=== PATIENT | male | born 1935 | race Caucasian/White ===

== ENCOUNTER → 2017-04-14 | Day surgery (SDC) | payer MEDICARE, OTHER ==
[~2017-04-14] VITALS: Ht 177.8 cm; Wt 68.2 kg
[~2017-04-14] MED LIST: FLOMAX0.4 MG PO; OCUVITE EYE +1 EACH PO; ONE DAILY FOR1 EAC1 PO; STOOL SOFTENER100 MG PO; TYLENOL EXTRA500 MG PO; TYLENOL WITH C1 EACH PO
--- NOTE | ~2017-04-14 | OR ---
PATIENT'S NAME: ALEKSANDR MARROQUIN [facility] AGE: 82 Y [address] ROOM: [place] [id number] LOCATION: [facility] [place] ADMIT DATE: 04/14/2017 OR/Procedure Report DISCHARGE DATE: FAMILY PHYSICIAN: Vasiliy Shearer PA-C ATTENDING PHYSICIAN: Layla Cheema SURGEON: Layla Cheema MD INCOMING FREIGHT CLERK: DATE OF PROCEDURE: 04/14/2017 PREOPERATIVE DIAGNOSES: 1. Left ureter stone. 2. Left upper pole stone. PROCEDURES PERFORMED: Cystoscopy, left ureteroscopy, laser lithotripsy and stent placement. ANESTHESIA: General. COMPLICATIONS: None. INDICATION FOR PROCEDURE: The patient is an 82-year-old male complaining of left flank pain. Abdominopelvic CT scan revealed a 6 mm mid left ureter stone and also a 3 to 4 mm left renal pelvic stone without obstruction. DETAILS OF PROCEDURE: After informed consent obtained, the patient was taken to the operating room. A general anesthetic was applied. He was placed in the dorsal lithotomy position. The groin area was prepped and draped in normal sterile fashion. Cystoscope was introduced into the urethra and bladder without difficulty. A guidewire was placed up into the renal pelvis and a second wire was placed up in the renal pelvis. Ureteroscope was then introduced over one of the wires and driven up to the level of the stone. The wire was removed and a holmium laser fiber was introduced. This was used to fragment the stone into multiple smaller pieces. The stone did migrate further up the ureter and I broke into multiple pieces before it was out of reach. Following this, the ureteroscope was removed. The cystoscope was back- loaded over the guidewire and a 6-Fijian multi-length ureteral stent was passed over the guidewire up into the renal pelvis. Radiograph imaging showed good position of the stent. The bladder was empty and the procedure terminated. The patient tolerated the procedure well and transferred to recovery room in good condition. LAYLA CHEEMA MD PATIENT'S NAME: ALEKSANDR MARROQUIN [facility] AGE: 82 Y [address] ROOM: [place] [id number] LOCATION: [facility] [place] ADMIT DATE: 04/14/2017 OR/Procedure Report DISCHARGE DATE: FAMILY PHYSICIAN: Vasiliy Shearer PA-C ATTENDING PHYSICIAN: Layla Cheema/dov /[id number] d: 04/14/17 2349 t: 04/18/17 0903, OPERATIVE SUMMARY
== END ==
LOC: GPOC 04-13 16:00 → GSDC 12:41 → GPOC 13:00
PROC: 0TF78ZZ Fragmentation in Left Ureter, Via Natural or Artificial Opening Endoscopic (ICD-10-PCS; principal; 2017-04-14)
PROC: 0T778DZ Dilation of Left Ureter with Intraluminal Device, Via Natural or Artificial Opening Endoscopic (ICD-10-PCS; 2017-04-14)
DX: N20.2 Calculus of kidney with calculus of ureter (principal); M19.90 Unspecified osteoarthritis, unspecified site; K21.9 Gastro-esophageal reflux disease without esophagitis; N40.0 Benign prostatic hyperplasia without lower urinary tract symptoms; Z98.890 Other specified postprocedural states; Z90.49 Acquired absence of other specified parts of digestive tract; Z88.0 Allergy status to penicillin
CPT/HCPCS: C1769; J1956; J2001; J7120

== ENCOUNTER → 2017-05-02 | Day surgery (SDC) | payer MEDICARE, OTHER ==
[~2017-05-02] VITALS: Ht 177.8 cm; Wt 70.2 kg
--- NOTE | ~2017-05-02 | OR ---
PATIENT'S NAME: ALEKSANDR MARROQUIN [facility] [place] AGE: 82 Y [address] ROOM: [place] [address] [place] [facility] [place]: 05/02/2017 OR/Procedure Report DISCHARGE DATE: FAMILY PHYSICIAN: Vasiliy Shearer PA-C ATTENDING PHYSICIAN: Layla Cheema SURGEON: Layla Cheema MD COOK'S ASSISTANT: DATE OF PROCEDURE: 05/02/2017 PREOPERATIVE DIAGNOSIS: Left nephrolithiasis. POSTOPERATIVE DIAGNOSIS: Left nephrolithiasis. PROCEDURE PERFORMED: 1. Left ESWL. 2. Cystoscopy with stent removal. ANESTHESIA: General. COMPLICATIONS: None. INDICATION FOR PROCEDURE: The patient is an 82-year-old male with left nephrolithiasis and left ureter stone. The patient is status post ureteroscopy with laser lithotripsy and stent placement. The patient presents for further treatment. DETAILS OF PROCEDURE: After informed consent obtained, the patient was taken to the operating room. A general anesthetic was applied. He was placed in the supine position on the lithotripsy table. His stone migrated down into the mid ureter adjacent to the stent. This was located with fluoroscopy. He received shocks starting at 16 kilovolts and gradually increased to 26 kilovolts. The patient has received a total of 1500 shocks with excellent fragmentation of the stone. The groin area was then prepped and draped in normal sterile fashion. Flexible cystoscope was introduced into the urethra and bladder without difficulty. The stent was identified, engaged with forceps and removed. The patient tolerated the procedure well and transferred to recovery room in good condition. LAYLA CHEEMA MD PATIENT'S NAME: ALEKSANDR MARROQUIN [facility] [place] AGE: 82 Y [address] ROOM: [place] [address] [place] [facility] [place]: 05/02/2017 OR/Procedure Report DISCHARGE DATE: FAMILY PHYSICIAN: Vasiliy Shearer PA-C ATTENDING PHYSICIAN: Layla Cheema/modl /[id number] d: 05/02/17 1808 t: 05/10/17 1158, OPERATIVE SUMMARY
== END ==
LOC: GSDC 07:00
PROC: 0TF4XZZ Fragmentation in Left Kidney Pelvis, External Approach (ICD-10-PCS; principal; 2017-05-02)
PROC: 0TP98DZ Removal of Intraluminal Device from Ureter, Via Natural or Artificial Opening Endoscopic (ICD-10-PCS; 2017-05-02)
DX: N20.0 Calculus of kidney (principal); K21.9 Gastro-esophageal reflux disease without esophagitis; N40.0 Benign prostatic hyperplasia without lower urinary tract symptoms; M19.90 Unspecified osteoarthritis, unspecified site; Z90.49 Acquired absence of other specified parts of digestive tract; Z88.0 Allergy status to penicillin
CPT/HCPCS: J1956; J2001; J7120

== ENCOUNTER → 2017-05-23 | Outpatient (CLI) | payer MEDICARE, OTHER | END | disposition disaster alternative care site (69) | LOC: GRAD 08:37 | DX: N20.0 Calculus of kidney (principal) ==